=== PATIENT | male | born 1960 | race Caucasian/White ===

== ENCOUNTER → 2019-02-17 11:09 | Outpatient (POV) | payer BC, SELFPAY ==
[2019-02-17 11:57] VITALS: BP 143/63; PULSE 60; RESP 21; O2SAT 96; BMI 38.0
--- NOTE | 2019-02-17 12:25 | HMH.PMCON ---
Assessment and Plan (1) Degenerative joint disease (DJD) of lumbar spine Current visit: Yes Status: Chronic Qualifiers: Spinal osteoarthritis complication: with radiculopathy Qualified Code(s): M47.26 - Other spondylosis with radiculopathy, lumbar region Category: Medical Code(s): M47.816 - Spondylosis without myelopathy or radiculopathy, lumbar region (2) Lumbosacral radiculopathy due to degenerative joint disease of spine Current visit: Yes Status: Chronic Category: Medical Code(s): M47.27 - Other spondylosis with radiculopathy, lumbosacral region (3) Postlaminectomy syndrome of lumbar region Current visit: Yes Status: Chronic Category: Medical Code(s): M96.1 - Postlaminectomy syndrome, not elsewhere classified - Assessment and plan all Dx Assessment and Plan for all problems:: We will order physical therapy to help with strengthening and help with low back pain. He is to continue with his current nonnarcotic medication regimen. We will follow-up with him after he completes physical therapy. We will not be prescribing any oral narcotics to this patient. Patient does not want any injections. He does not want any implants. He is failed all other conservative therapy including injections and previous surgery. HPI - Data of Consult Patient: new to practice Consult date: 02/17/19 Requesting Physician: Johnny Sheikh MD Primary Care Provider: Prisca Hollingsworth - Consult Narrative Reason for consult: Low back pain and leg pain History of present illness: Mr. Segovia is a 58 year old male is a long history of low back pain and leg pain. He has had previous surgery. He also has had previous injections in all other conservative treatments. He continues to have significant back pain with muscle spasms. Most of his pain now seems to be muscular in the lower lumbar paraspinous area. He is currently taking aspirin, ibuprofen, naproxen and acetaminophen. He is not on any oral narcotics. Patient does not do well with antidepressants. He does not want any injectable therapy. He does not went any implants. He is asking about pursuing physical therapy to help with his muscular pain. CC: Johnny Sheikh MD [facility] History I have reviewed the patient's past medical history: Yes Medical History: Reports:: Hyperlipidemia Denies:: Diabetes Mellitus Type 1, Diabetes Mellitus Type 2, Internal Pacemaker, Lung Disease, Seizures Other Medical History: Denies: Blood Transfusion Reaction Other Surgeries: No: Pacemaker - *Social History Smoking Status: Current some day smoker Tobacco Type: cigars # Packs/Day (cigarettes): 0 Alcohol Intake: current Alcohol Intake Frequency:: a few times a month *Occupational Status:: disabled *Travel in the last 8 weeks: None - Psychiatric History Expresses thoughts of harming self/others: None Suicide Plan Description: No Plan Family Hx:: No significant family history Review of Systems - Review of Systems Review of systems:: pertinent systems reviewed and negative unless documented below - *Musculoskeletal Reports abnormal walking, Reports decreased muscle mass, Reports back pain, Reports muscle weakness, Reports body aches, Reports radiating pain into limb, Reports stiffness Meds Home Medications Medication Instructions Recorded Confirmed Type Lisinopril/Hydrochlorothiazide 20 mg PO DAILY 02/01/19 02/01/19 History [Lisinopril-Hctz 20-12.5 mg Tab] Allergies Allergy/AdvReac Type Severity Reaction Status Date / Time antidepressants AdvReac Intermediate Hallucinati Uncoded 02/01/19 11:44 ng Objective Vital signs: Pulse Resp BP Pulse Ox 60 21 143/63 H 96 02/17/19 11:57 02/17/19 11:57 02/17/19 11:57 02/17/19 11:57 - Routine Back/Spine/Pelvis Exam Back/Spine: Present: paraspinal tenderness, vertebral tenderness, pain with flexion, pain with rotation Opioid Risk Tool - CAGE-AID Questionaire Do you feel a need to increase
--- NOTE | 2019-02-17 12:28 | P.CONS_ITS ---
Assessment and Plan (1) Degenerative joint disease (DJD) of lumbar spine Current visit: Yes Status: Chronic Qualifiers: Spinal osteoarthritis complication: with radiculopathy Qualified Code(s): M47.26 - Other spondylosis with radiculopathy, lumbar region Category: Medical Code(s): M47.816 - Spondylosis without myelopathy or radiculopathy, lumbar region (2) Lumbosacral radiculopathy due to degenerative joint disease of spine Current visit: Yes Status: Chronic Category: Medical Code(s): M47.27 - Other spondylosis with radiculopathy, lumbosacral region (3) Postlaminectomy syndrome of lumbar region Current visit: Yes Status: Chronic Category: Medical Code(s): M96.1 - Postlaminectomy syndrome, not elsewhere classified - Assessment and plan all Dx Assessment and Plan for all problems:: We will order physical therapy to help with strengthening and help with low back pain. He is to continue with his current nonnarcotic medication regimen. We will follow-up with him after he completes physical therapy. We will not be prescribing any oral narcotics to this patient. Patient does not want any i njections. He does not want any implants. He is failed all other conservative therapy including injections and previous surgery. HPI - Data of Consult Patient: new to practice Consult date: 02/17/19 Requesting Physician: Johnny Sheikh MD Primary Care Provider: Prisca Hollingsworth - Consult Narrative Reason for consult: Low back pain and leg pain History of present illness: Mr. Segovia is a 58 year old male is a long history of low back pain and leg pain. He has had previous surgery. He also has had previous injections in all other conservative treatments. He continues to have significant back pain with muscle spasms. Most of his pain now seems to be muscular in the lower lumbar paraspinous area. He is currently taking aspirin, ibuprofen, naproxen and acetaminophen. He is not on any oral narcotics. Patient does not do well with antidepressants. He does not want any injectable therapy. He does not went any implants. He is asking about pursuing physical therapy to help with his muscular pain. CC: Johnny Sheikh MD [facility] History I have reviewed the patient's past medical history: Yes Medical History: Reports:: Hyperlipidemia Denies:: Diabetes Mellitus Type 1, Diabetes Mellitus Type 2, Internal Pacemaker, Lung Disease, Seizures Other Medical History: Denies: Blood Transfusion Reaction Other Surgeries: No: Pacemaker - *Social History Smoking Status: Current some day smoker Tobacco Type: cigars # Packs/Day (cigarettes): 0 Alcohol Intake: current Alcohol Intake Frequency:: a few times a month *Occupational Status:: disabled *Travel in the last 8 weeks: None - Psychiatric History Expresses thoughts of harming self/others: None Suicide Plan Description: No Plan Family Hx:: No significant family history Review of Systems - Review of Systems Review of systems:: pertinent systems reviewed and negative unless documented below - *Musculoskeletal Reports abnormal walking, Reports decreased muscle mass, Reports back pain, Reports muscle weakness, Reports body aches, Reports radiating pain into limb, Reports stiffness Meds Home Medications Medication Instructions Recorded Confirmed Type Lisinopril/Hydrochlorothiazide 20 mg PO DAILY 02/01/19 02/01/19 History [Lisinopril-Hctz 20-12.5 mg Tab] Allergies Allergy/Ad
== END ==
PROVIDERS: PCP Nurse Practitioner; Visit Provider Anesthesiology
DX: M51.16 Intervertebral disc disorders with radiculopathy, lumbar region (principal); M96.1 Postlaminectomy syndrome, not elsewhere classified
CPT/HCPCS: 99202

== ENCOUNTER → 2019-03-13 09:45 | Outpatient (POV) | payer BC, SELFPAY | PROVIDERS: Visit Provider Nurse Practitioner Family | DX: Z00.00 Encounter for general adult medical examination without abnormal findings (principal) ==

== ENCOUNTER 2019-04-04 14:00 | Outpatient (RCR) | payer BC, SELFPAY ==
--- NOTE | 2019-02-22 15:13 | HMH.PTOPEV ---
PT Outpatient Evaluation Rehab PT Outpatient Evaluation Start: 02/22/19 14:14 Freq: Status: Active Protocol: Document 02/22/19 14:15 LEVYROMINA (Rec: 02/22/19 15:13 QUOCKATE [id number]) Electronically Signed By Tesfaye Car PT 02/22/19 14:15 Outpatient Therapy Subjective History Subjective History This is the initial Physical Therapy evaluation for Jarett Segovia. Pt is a 58 y/o male referred to PT for chronic back pain. Pt was very verbose of history of low back pain. Pt reports he had surgery in 2011 for a ruptured disc but was unsure of type of surgery. Per Pain mgmnt MD pt had laminectomy. Chief Complaint Pain,Spasms,Stiff,Weakness Symptom Type Ache,Sharp,Dull,Burning, Numbness,Tingling,Shooting Symptoms Relieved By Rest/Positioning Symptoms Aggravated By Standing,Bending/Stooping, Physical Activity,Walking Prior Functional Limitations Housework,Standing,Recreation Activity,Walking,Bending/ Stooping Current Functional Limitations Housework,Sleeping,Standing, Recreation Activity,Walking, Bending/Stooping Symptom Description Constant but Variable Level of pain today (0-10) 3 Pain scale - at its best (0-10) 0 Pain scale - at its worst (0-10) 8 Lumbopelvic Eval Posture Thoracic Spine Posture Standing Position Increased Kyphosis Lumbar Spine Posture Standing Position Flattened Assistive device Assistive Devices None / NA Palapation tenderness bilateral thoracic spinal tenderness Yes lumbar spinal tenderness Yes paraspinal tenderness Yes Lumbar/Sacral Palpation Findings Tenderness,Muscle Guarding Accessory Movement T-spine Vertebrae Accessory Movements Central P/A [place] that Elicit Symptoms L-spine Vertebrae Accessory Movements Central P/A [place] that Elicit Symptoms Range of Motion Lumbar Spine Active Flexion Range of 80 Motion (degrees) Lumbar Spine Active Extension Range of 10 Motion (degrees) Lumbar Spine ROM Limitations Contracture,Pain DTR Rt Patellar 1+ Lt Patellar 1+ Rt Gastroc/Soleus 0 Lt Gastroc/Soleus 0 Special Tests Lumbar Spine Screen Positive Hip Piriformis Test Positive Left,Positive Right Sciatic Nerve Tension Test Negative Left,Neg
== END 2019-04-04 14:05 | disposition home or self-care (01) ==
LOC: PT 14:00
PROVIDERS: Visit Provider Anesthesiology
DX: M54.5 Low back pain (principal)
CPT/HCPCS: 97010; 97110; 97163

== ENCOUNTER → 2019-04-10 10:41 | Outpatient (POV) | payer BC, SELFPAY ==
[2019-04-10 10:51] VITALS: BP 165/82; PULSE 67; RESP 18; O2SAT 98; BMI 33.9
--- NOTE | 2019-04-10 11:11 | HMH.PAINSOAP ---
[facility] Pain Management SOAP Note Subjective:: Patient is a pleasant 58-year-old white male who presents today for follow-up. The patient has a long history of low back pain and leg pain. He has had previous surgery. He has also had multiple injections for which he reports very little relief. He has tried all other conservative therapies. We did send the patient for physical therapy and he is reporting to have about 50% relief, stating it takes the kill me now pain away, at least . The patient is also continuing a home stretching program, along with learned from physical therapy. He refuses NSAIDs at this time, stating they have too many side effects . The patient says that he also takes a sleep aid along with a pint of liquor when the pain is very severe . Patient says this has been more beneficial than any other therapies. Review of Systems General: No recent weight changes, no fever, no sleep disturbances Respiratory: No cough, no shortness of air, no recurring pulmonary infections Cardiovascular/peripheral vascular: No chest pain, no palpitations, no edema, no shortness of breath Gastrointestinal: No new onset incontinence, normal bowel movements reported Genitourinary: No new onset incontinence Musculoskeletal: Back pain, leg pain Psychiatric: Normal mood/affect Neurological: [Denies weakness in extremities], [denies balance issues] Objective:: Physical exam General: Alert and oriented x3, no acute distress, pleasant and cooperative, [on room air] Lungs: Respirations even and unlabored, symmetrical chest expansion Eyes: PERRL Musculoskeletal: Flexion and extension of lumbar spine somewhat guarded secondary to pain, deep tendon reflexes normal, strength in upper and lower extremities [5/5], normal gait noted Neurological: Speech clear, supervisor elementary education equal, no gross sensory deficit Assessment:: Degenerative disc disease of lumbar spine with lumbar radiculopathy, postlaminectomy syndrome of lumbar spine Plan:: The patient will continue physical therapy and home stretching program. He is not interested in any other treatment options at this time. He would like to follow-up with us as needed. He is been instructed to call the office if he has any concerns. Dr. Sheikh has reviewed this note and agrees with this plan of care. This note was dictated using voice recognition software and make contain errors or omissions.
== END ==
PROVIDERS: PCP Nurse Practitioner; Visit Provider Clinical Nurse Specialist Family Health
DX: M51.16 Intervertebral disc disorders with radiculopathy, lumbar region (principal); M96.1 Postlaminectomy syndrome, not elsewhere classified
CPT/HCPCS: 99212

== ENCOUNTER → 2020-01-11 09:22 | Outpatient (CLI) | payer BC, SELFPAY ==
--- NOTE | 2020-01-11 09:28 | CT_ITS ---
PROCEDURE: CT ABDOMEN W CON CLINICAL HISTORY: ABD PAIN, WGT LOSS,IBS COMPARISON: No exams were available for comparison TECHNIQUE: Thin-section axial images were obtained after 75 cc Optiray 350 administration. Axial images obtained with sagittal and coronal reformats. All CT scans at the facility use one or more dose reduction, viz: automated exposure control, ma/kV adjustment per patient size (including targeted exams where dose is matched to indication, i.e. head), or iterative reconstruction technique. FINDINGS: There is a calcified granuloma left lung base. Calcified splenic granulomas are noted. There is fatty infiltration of the liver. There is enlargement of both adrenal glands left greater than right. Left adrenal measures at least 3.5 by 2.8 centimeters. Benign adenomatous disease is favored. Follow-up is recommended to confirm this to exclude adrenal metastases. MRI with chemical shift imaging may be useful to further evaluate if the patient is MRI compatible. There are cystic lesions of both kidneys largest is approximately 3.3 centimeters projecting off of the posterior cortex of the left kidney. This measures 28 HU. Additionally an approximately 1 centimeter hypodense nodule projects off the posterior cortex lower pole right kidney image 59 series 3. This measures 24 HU. Neither lesion fulfill strict criteria for benign simple cyst. Complicated cysts are favored. Follow-up is recommended. Not fulfilling criteria for simple cyst. Hemorrhagic or infected cyst is favored. There is ectasia of the infrarenal abdominal aorta to 2.9 centimeters. There is no evidence of dissection or retroperitoneal hemorrhage. Small fat containing periumbilical hernia is noted. Metallic density with beam hardening artifact is seen in the right lower quadrant. Multilevel degenerative disc disease is seen throughout the thoracolumbar spine multilevel central canal and foraminal stenoses. There are bilateral L5 pars defects with minimal anterior subluxation. There is colonic diverticulosis without diverticulitis. IMPRESSION: No acute findings. Complicated cysts of both kidneys. Ultrasound follow-up may be useful. Bilateral adrenal gland enlargement. Adenomas are favored. Follow-up is recommended. Colonic diverticulosis. Atherosclerosis with ectasia of the infrarenal abdominal aorta.. Multilevel degenerative disc and facet disease. Dictated by: Kristian Damon 01/11/2020 11:03 Electronically signed by Kristian Damon in [place] 01/11/2020 11:03
== END ==
PROVIDERS: PCP Nurse Practitioner; Visit Provider Nurse Practitioner
DX: R10.84 Generalized abdominal pain (principal); R63.4 Abnormal weight loss; K58.2 Mixed irritable bowel syndrome
CPT/HCPCS: 74160; Q9967

== ENCOUNTER → 2020-01-29 08:40 | Outpatient (CLI) | payer BC, SELFPAY ==
--- NOTE | 2020-01-29 08:46 | MR_ITS ---
PROCEDURE: MR ABDOMEN WO/W CON CLINICAL INDICATION: RENAL LESION, LESIONS OF ADRENAL GLANDS Abdominal pain, weight loss,, complex renal lesions and adrenal enlargement COMPARISON: CT ABDOMEN W CON from 01/11/2020 TECHNIQUE: Routine multiplanar multi echo sequences are performed without and with gadolinium enhancement. FINDINGS: There is bilateral adrenal enlargement as noted on the CT scan left more prominent than right. There is definite decrease in intensity on the out of phase images on right adrenal gland anteriorly. There is suggestion of some heterogeneous loss of signal intensity of the left adrenal gland although not as distinct as the right adrenal gland. Findings are suggestive of bilateral adrenal adenomas. Recommend [address] follow-up without and with contrast with adrenal protocol There is a 3.6 cm cyst projecting off posterior aspect of the left kidney. This does not demonstrate contrast enhancement, internal septations, or wall thickening. There is a 1 cm cystic lesion projecting off the posterior and superior aspect of the right kidney with some questionable minimal capsular thickening. This may be due to partial volume averaging artifact. The liver, spleen, pancreas, have an unremarkable appearance. IMPRESSION: 1. Bilateral adrenal enlargement as described above the showing some decrease in signal on the opposed phase images suggesting adenomas. 2. Bilateral renal cysts. The left renal cyst appears benign. There is some questionable capsular enhancement of the right renal cyst. This however may be artifactual. 3. Recommend [address] follow-up without and with contrast with delayed images for confirmation of stability Dictated by: Alexis Price MD 02/13/2020 09:12 Electronically signed by Alexis Price MD in [place] 02/13/2020 09:12
== END ==
PROVIDERS: PCP Nurse Practitioner; Visit Provider Nurse Practitioner
DX: N28.9 Disorder of kidney and ureter, unspecified (principal); E27.9 Disorder of adrenal gland, unspecified
CPT/HCPCS: 74183; A9576

== ENCOUNTER 2023-11-02 09:18 | Day surgery (SDC) | payer OTHER, SELFPAY ==
[2023-10-28 10:57] VITALS: BMI 31.4
[2023-11-02] MEDS: TETRACAINE 0.5% OPTH SOL 15ML OP ×3 (09:28→09:30)
[2023-11-02] MEDS: CYCLOPENTOLATE 2% OPHTH SOLN 2ML BOTTLE OP ×3 (09:28→09:30)
[2023-11-02] MEDS: PHENYLEPHRINE 2.5% OPHTH SOLN 2ML 0.0500000000000000028 ML OP ×3 (09:29→09:30)
[2023-11-02 09:38] VITALS: BP 152/114; PULSE 97; RESP 18; TEMP 36.2; O2SAT 95
[2023-11-02 10:42] VITALS: BP 160/101; PULSE 78; RESP 17; O2SAT 94
[2023-11-02] MEDS: MIDAZOLAM 2MG/2ML VIAL 1 MG IV (10:42)
[2023-11-02 10:47] VITALS: BP 150/100; PULSE 74; RESP 16; O2SAT 98
[2023-11-02] MEDS: TIMOLOL 0.5% OPTH SOLN 5ML OP (10:50)
[2023-11-02] MEDS: TOBRAMYCIN/DEX OPTH SUSP 2.5ML OP (10:51)
[2023-11-02] MEDS: LIDOCAINE 1% PF 2ML AMPULE 2 ML IJ (10:51)
[2023-11-02 10:52] VITALS: BP 167/79; PULSE 80; RESP 17; O2SAT 98
[2023-11-02 10:57] VITALS: BP 127/86; PULSE 85; RESP 16; TEMP 36.2; O2SAT 99
[2023-11-02 11:11] VITALS: BP 127/86; PULSE 85; RESP 16; TEMP 36.2; O2SAT 99
== END 2023-11-02 11:11 | disposition home or self-care (01) ==
PROVIDERS: PCP Nurse Practitioner; Visit Provider Ophthalmology
PROC: (CPT 66984; principal; 2023-11-02 12:30)
DX: H25.811 Combined forms of age-related cataract, right eye (principal)
CPT/HCPCS: 66984; V2632

== ENCOUNTER → 2023-11-23 08:39 | Day surgery (SDC) | payer OTHER, SELFPAY ==
[2023-11-19 12:18] VITALS: BMI 32.1
[2023-11-23] MEDS: PHENYLEPHRINE 2.5% OPHTH SOLN 2ML 0.0500000000000000028 ML OP ×3 (09:59→10:12)
[2023-11-23] MEDS: CYCLOPENTOLATE 2% OPHTH SOLN 2ML BOTTLE OP ×3 (09:59→10:12)
[2023-11-23] MEDS: TETRACAINE 0.5% OPTH SOL 15ML OP ×3 (09:59→10:12)
[2023-11-23] MEDS: SODIUM CHLORIDE 0.9% 10ML FLUSH SYRINGE 10 ML IV (10:00)
[2023-11-23 10:05] VITALS: BP 133/89; PULSE 90; RESP 18; TEMP 36.1; O2SAT 100
[2023-11-23 10:58] VITALS: BP 179/102; PULSE 79; RESP 17; O2SAT 100
[2023-11-23 11:03] VITALS: BP 145/97; PULSE 75; RESP 17; O2SAT 100
[2023-11-23] MEDS: TIMOLOL 0.5% OPTH SOLN 5ML OP (11:03)
[2023-11-23] MEDS: LIDOCAINE 1% PF 2ML AMPULE 2 ML IJ (11:03)
[2023-11-23] MEDS: MIDAZOLAM 2MG/2ML VIAL 1 MG IV (11:03)
[2023-11-23] MEDS: TOBRAMYCIN/DEX OPTH SUSP 2.5ML OP (11:03)
[2023-11-23 11:08] VITALS: BP 149/86; PULSE 68; RESP 16; O2SAT 100
[2023-11-23 11:16] VITALS: BP 141/78; PULSE 74; RESP 18; TEMP 36.4; O2SAT 99
== END | disposition home or self-care (01) ==
PROVIDERS: PCP Family Medicine; Visit Provider Ophthalmology
PROC: (CPT 66984; principal; 2023-11-23 12:00)
DX: H25.812 Combined forms of age-related cataract, left eye (principal)
CPT/HCPCS: 66984; V2632

== ENCOUNTER 2025-08-14 06:21 | Day surgery (SDC) | payer MEDICARE, SELFPAY ==
[2025-08-14 06:58] VITALS: BP 114/85; PULSE 88; RESP 16; TEMP 36.3; O2SAT 97; BMI 30.7
[2025-08-14] MEDS: LACTATED RINGERS 1000ML 1,000 ML 50 ML IV (07:08)
--- NOTE | 2025-08-14 07:22 | EXP.ANES.CKL ---
[facility] Disclaimer: The information contained in this section may have been updated after the patient was seen, as this information can be updated by other users. Medical History Encounter for screening colonoscopy Cataract H/O retained foreign body fully removed Osteoarthritis History of cataract Hypertension H/O retained foreign body fully removed Surgical History Hx of cataract removal with insertion of prosthetic lens History of lumbar surgery Family History Other Family history of stroke Social History Smoking Status: Former smoker tobacco type: cigarettes packs per day: 1 alcohol intake: current alcohol intake frequency: a few times a month substance use type: denies use current occupational status: other Travel in the last 8 weeks?: None household members: spouse housing: house current occupational exposures/hazards: No caffeine: Yes Have you lived/traveled outside [place] in past 30 days?: No Contact w/someone who lives/traveled outside US past 30 days?: No Exposure to someone with infectious disease in past 14 days?: No Do you have a fever (greater than 100.4 F or 38 C)?: No Have you tested positive for COVID-19?: No Exposed to someone with COVID-19 in past 14 days?: No Do you have a sore throat?: No Do you have a cough?: No Do you have any weakness?: No Are you experiencing any nausea/vomitting?: No Do you have any diarrhea?: No Are you experiencing any unusual bleeding?: No Do you have any muscle aches/pain?: No Do you have any abdominal pain?: No Are you experiencing loss of taste or smell?: No [facility] Anesthesia Checklist Patient Identification Patient Identification: Arm Band and Verbal (Name & ) Structural Data Admitted From: Home Planned Operative Procedure/s: colonscopy Consent for Planned Operative Procedure(s) Verified: Yes Verified Documents: Surgical Consent and History and Physical NPO Status Verified Time NPO: 00:00 Additional verifications Anesthesia Reactions: No Hx Blood Transfusions: No Blood Transfusion Reaction: No Previous Colonoscopy: Yes Airway Assessment Dentition: Good Dentition Neurological Assessment Level of Consciousness: Awake, Alert and Appropriate Hx Seizures: No Numbness or tingling in extremities: No Anesthesia Plan Anesthesia Risk discussed: Yes Anesthesia Plan: Verified ASA Class: II Anesthesia Type: MAC
--- NOTE | 2025-08-14 07:38 | EXP.GEN.HP ---
HPI HPI HPI: This is a 65-year-old gentleman who reports for repeat colonoscopy. His most recent colonoscopy was performed in July 2019 with (Dr. Cunningham) at which time he was noted to have residual adenomatous change at site of prior polypectomy. Left-sided diverticulosis and mild hemorrhoids also noted. Prior colonoscopy in January 2029 revealed 2 large adenomatous polyps of the right colon and cecum (33 mm right colon adenoma and 23 mm cecal adenoma). The patient also believes he has significant issues with peristalsis . He wishes to see a different GI doctor sometime in the near future . [facility] Disclaimer: The information contained in this section may have been updated after the patient was seen, as this information can be updated by other users. Medical History Encounter for screening colonoscopy Cataract H/O retained foreign body fully removed Osteoarthritis History of cataract Hypertension H/O retained foreign body fully removed Surgical History Hx of cataract removal with insertion of prosthetic lens History of lumbar surgery Family History Other Family history of stroke Social History Smoking Status: Former smoker tobacco type: cigarettes packs per day: 1 alcohol intake: current alcohol intake frequency: a few times a month substance use type: denies use current occupational status: other Travel in the last 8 weeks?: None household members: spouse housing: house current occupational exposures/hazards: No caffeine: Yes Have you lived/traveled outside [place] in past 30 days?: No Contact w/someone who lives/traveled outside [place] past 30 days?: No Exposure to someone with infectious disease in past 14 days?: No Do you have a fever (greater than 100.4 F or 38 C)?: No Have you tested positive for COVID-19?: No Exposed to someone with COVID-19 in past 14 days?: No Do you have a sore throat?: No Do you have a cough?: No Do you have any weakness?: No Are you experiencing any nausea/vomitting?: No Do you have any diarrhea?: No Are you experiencing any unusual bleeding?: No Do you have any muscle aches/pain?: No Do you have any abdominal pain?: No Are you experiencing loss of taste or smell?: No Other Medical History Have you received the Flu Vaccine for this season: No Have you received the Pneumonia Vaccine: No Review of Systems Review of Systems Review of systems:: pertinent systems reviewed and negative unless documented below *Gastrointestinal Gastrointestinal: Reports as per [facility] Meds Home Medications and Allergies Home Medications ?Medication ?Instructions ?Recorded ?Confirmed ?Type acetaminophen 325 mg tablet 325 mg PO NEEDED PRN As Needed 07/31/19 08/14/25 History For Fever Or Pain aspirin 500 mg tablet 500 mg PO Q5H Pain 11/02/23 08/14/25 History losartan 100 mg tablet 100 mg PO DAILY 08/13/25 08/14/25 History New Prescriptions to Start Prescriptions: Allergies Allergy/AdvReac Type Severity Reaction Status Date / Time sertraline (From Zoloft) Allergy Intermediate Hallucinati Verified 08/14/25 06:46 ng shellfish derived Allergy Rash Verified 08/14/25 06:46 Exam Data for Last 24 hours Vital signs and Labs for Last 24 Hours: Temp Pulse Resp BP Pulse Ox O2 Del Method 97.4 F L 88 16 114/85 97 Room Air 08/14/25 06:58 08/14/25 06:58 08/14/25 06:58 08/14/25 06:58 08/14/25 06:58 08/14/25 06:58 I & O for Last 24 hours: Intake & Output 08/11/25 08/12/25 08/13/25 08/14/25 11:59 10:59 11:59 11:59 Weight 220 lb Constitutional Constitutional: no acute distress *Routine HEENT Exam Head: Present normocephalic Eye: Present EOMI ENT: Present mucous membranes moist *Routine Neck Exam Neck: Present full ROM *Routine Respiratory Exam Respiratory: Absent respiratory distress *Routine Cardiovascular Exam Cardiovascular: Absent tachycardia *Routine Abdominal Exam Abdominal: Present soft *Routine Rectal Exam Rectal:: deferred *Routine Genitalia Exam Genitalia:: deferred *Routine Extremities Exam Extremities: Present full ROM *Routine Skin Exam Skin: Absent erythema *Routine Neurological Exam Neurological: Present alert Assessment and Plan *Assessment and plan (1) History of colon polyps: Status: Acute Category: Medical Code(s): Z86.0100 - Personal history of colon polyps, unspecified (2) Abnormal digestive peristalsis: Status: Acute Category: Medical Code(s): R19.8 - Other specified symptoms and signs involving the digestive system and abdomen Plan Colonoscopy today I have discussed the risks and benefits including, but not limited to: Bleeding Infection Damage to surrounding tissue Inherent risks of sedation The patient agrees to proceed. The patient wishes to see Dr. Emiliano Fierro in [facility] in the near future (will be scheduled)
--- NOTE | 2025-08-14 07:42 | [facility].SCOPE ---
Procedure: Date: 08/14/25 Patient Date of :: 1960 Procedure Performed:: Colonoscopy Indications:: History of colon polyps Performing Provider:: Estiven Mclean MD Referring Provider:: . Sedation:: Monitored anesthesia care Procedure:: After informed consent was obtained the patient was taken to the endoscopy suite. Sedation ensued after the patient was transferred to the left lateral decubitus position. Pulse, blood pressure, and oxygen saturation were monitored throughout the procedure. Digital rectal exam revealed no significant abnormality. The colonoscope was placed in position. The entire colon was evaluated. The colonoscope was carefully removed and the patient was transferred to recovery in stable condition. Please see findings and specimens below for detail. Findings:: Bowel preparation moderate poor Moderate tortuosity Fairly significant spasticity/lack of relaxation Scattered mild left-sided diverticulosis Mild hemorrhoids Specimens:: None Recommendations:: Fairly short-term repeat colonoscopy warranted secondary to limitations in visualization (deferred to Dr. Fierro). Establish follow-up with Dr. Emiliano Fierro in [facility] as per patient request. Complications:: No immediate Estimated blood obtained (mL): 0 Colonoscopy Component Colonoscopy Component Was a colonoscopy performed during today's procedure?: Yes Recommended follow up colonoscopy of at least 10 years?: No If no, follow up colonoscopy recommended in ___ years?: (See above) Reason for not recommending >/= 10 yr follow-up interval?: (See above)
[2025-08-14 08:14] VITALS: BP 82/54; PULSE 77; RESP 16; TEMP 36.2; O2SAT 77
[2025-08-14 08:24] VITALS: BP 106/62; PULSE 77; RESP 16; TEMP 36.2; O2SAT 97
[2025-08-14 08:34] VITALS: BP 110/70; PULSE 72; RESP 16; TEMP 36.2; O2SAT 98
[2025-08-14 08:44] VITALS: BP 112/76; PULSE 78; RESP 16; TEMP 36.2; O2SAT 98
== END 2025-08-14 08:44 | disposition home or self-care (01) ==
PROVIDERS: PCP Nurse Practitioner; Visit Provider Surgery
PROC: 0DJD8ZZ Inspection of Lower Intestinal Tract, Via Natural or Artificial Opening Endoscopic (ICD-10-PCS; CPT 45378; principal; 2025-08-14 07:30)
DX: K57.30 Diverticulosis of large intestine without perforation or abscess without bleeding (principal); K64.9 Unspecified hemorrhoids; I10 Essential (primary) hypertension; M19.90 Unspecified osteoarthritis, unspecified site; Z87.891 Personal history of nicotine dependence; Z86.0101 Personal history of adenomatous and serrated colon polyps
CPT/HCPCS: 45378; J2003; J2704; J7120